=== PATIENT | female | born 1985 | race Caucasian/White ===

== ENCOUNTER 2016-06-19 12:36 | Outpatient (CLI) | payer OTHER ==
[2014-07-29 04:14] VITALS: BP 98/66
[2016-06-23 10:41] LABS: ADENOVIRUS F 40/41 Not Detected (Not Detected); ASTROVIRUS Not Detected (Not Detected); C. DIFFICILE (TOXIN A/B) Not Detected (Not Detected); CRYPTOSPORIDIUM Not Detected (Not Detected); CYCLOSPORA CAYETANENSIS Not Detected (Not Detected); ENTAMOEBA HISTOLYTICA Not Detected (Not Detected); GIARDIA LAMBLIA Not Detected (Not Detected); ROTAVIRUS A Not Detected (Not Detected); SAPOVIRUS Not Detected (Not Detected); VIBRIO CHOLERAE Not Detected (Not Detected)
== END 2016-06-19 12:37 ==
LOC: LAB 12:36
PROVIDERS: ATTEND Physician Assistant
DX: K92.1 Melena (principal); R19.5 Other fecal abnormalities
CPT/HCPCS: 87045; 87046; 87427; 87507

== ENCOUNTER 2016-10-09 14:09 | Emergency (ER) | payer OTHER ==
[2016-10-09 15:34] LABS: APPEARANCE,URINE Clear (CLEAR); BASOPHILS % 0.8 (0.0-1.5); COLOR,URINE Yellow (YELLOW); EOSINOPHILS % 1.6 % (0.0-6.8); MEAN CORPUSCULAR HEMOGLOBIN 30.6 pg (28.0-34.0); MONOCYTES % 3.8 % (0.0-11.0); OCCULT BLOOD,URINE Negative (NEGATIVE); UROBILINOGEN URINE 0.2 Eu (0.2-1.0)
[2016-10-09 15:51] LABS: eGFR (African) > 60; eGFR (Non-African) > 60
[2016-10-09 16:00] LABS: AMPHETAMINE NEGATIVE ng/mL (<1000); BARBITURATES NEGATIVE ng/mL (<300); CANNABINOIDS NEGATIVE ng/mL (<50); COCAINE NEGATIVE ng/mL (<150); METHAMPHETAMINE NEGATIVE ng/mL (<1000); METHYLENEDIOXYMETHAMPHETAMINE NEGATIVE ng/mL (<500)
[2016-10-09 16:22] VITALS: BP 115/72
--- NOTE | 2016-10-10 17:39 | ED Physician Documentation ---
Dizziness - HISTORIAN Historian: patient - HPI Stated Complaint: weak/dizzy Chief Complaint: Dizziness Additional Information: pt. opened a package in the mail, inhaled some sort of chemical smell and became weak, dizzy, bad taste in mouth Timing: sudden onset Duration: persistent (better by time of arrival) Last known Well Date: 10/09/16 Last Known Well Time: 12:00 Last known Well Code/Unknown Code: Unknown Context: opened a plastic bag in the mail Severity: moderate Associated Symptoms: vestibular, light headedness Decreased Ability to Stand/ Walk: weak Usually: walks w/o assistance Worsened By: nothing Further Comments: no - ROS CONST: no problems EYES/ENT: none GI/: none LNMP: denies: MS/SKIN/LYMPH: none NEURO/PSYCH: tingling hands CVS/RESP: shortness of breath - PAST HX Past History: none Cardiac Disease: none Surgeries/Procedures: other (breast augmentation) Immunizations: referred to PCP Allergies/Adverse Reactions: Allergies Allergy/AdvReac Type Severity Reaction Status Date / Time No Known Allergies Allergy Verified 10/09/16 14:35 Home Medications: Ambulatory Orders Medication Instructions Recorded NK [NK] 07/29/14 - SOCIAL HX Smoking History: non-smoker Alcohol Use: none Drug Use: none - FAMILY HX Family History: none - VITAL SIGNS Vital Signs: Vital Signs Temp Pulse Resp BP Pulse Ox 98.7 F 72 16 115/72 99 10/09/16 16:17 10/09/16 16:17 10/09/16 16:17 10/09/16 16:17 10/09/16 16:17 - REVIEWED ASSESSMENTS Nursing Assessment Reviewed: Yes Vitals Reviewed: Yes Progress - Results/Orders Results/Orders: ua, uds, cbc, cmp ordered - Progress Progress: pt. placed on 2 liters O2 in er and completely recovered Critical Care Note - Critical Care Note Total Time (mins): 0 ED Results Lab/Radiology - Lab Results Lab Results: Lab Results 10/09/16 10/09/16 10/09/16 15:25 15:10 15:10 WBC RBC Hgb Hct MCV MCH MCHC RDW Plt Count Neut % (Auto) Lymph % (Auto) [place] % (Auto) Eos % (Auto) Baso % (Auto) Neut # Lymph # [place] # Eos # Baso # Reactive Lymphs % Reactive Lymphs # Sodium 140 mmol/L mmol/L (136-145) Potassium 3.4 mmol/L L mmol/L (3.5-5.0) Chloride 110 mmol/L mmol/L (98-110) Carbon Dioxide 35 mmol/L H mmol/L (20-32) BUN 11 mg/dL mg/dL (10-26) Creatinine 0.7 mg/dL mg/dL (0.4-1.5) Estimated Creat Clear 120 Est GFR ( Amer) > 60 (60 - ) Est GFR (Non-Af Amer) > 60 (60 - ) Glucose 101 mg/dL H mg/dL (70-99) Calcium 9.8 mg/dL mg/dL (8.5-10.5) Total Bilirubin 0.5 mg/dL mg/dL (0.2-1.2) AST 17 U/L U/L (0-41) ALT 10 U/L U/L (0-45) Alkaline Phosphatase 51 U/L U/L (46-116) Total Protein 7.6 g/dL g/dL (6.0-8.5) Albumin 5.0 g/dL g/dL (3.0-5.5) Urine Color Yellow (YELLOW) Urine Appearance Clear (CLEAR) Urine pH 7.0 (5.0 - 8.0) Ur Specific [place] 1.015 (1.010-1.030) Urine Protein Negative mg/dL mg/dL (NEGATIVE) Urine Ketones Negative mg/dL mg/dL (NEGATIVE) Urine Occult Blood Negative (NEGATIVE) Urine Nitrite Negative (NEGATIVE) Urine Bilirubin Negative (NEGATIVE) Urine Urobilinogen 0.2 Eu Eu (0.2-1.0) Ur Leukocyte Esterase Negative (NEGATIVE) Urine Glucose Negative mg/dL mg/dL (NEGATIVE) Opiates Screen Negative (2000 ng/mL) Oxycodone Screen Negative ng/mL ng/mL (<100) Methadone Screen Negative ng/mL ng/mL (<300) POC Urine Barbiturates Negative ng/mL ng/mL (<300) Amphetamines Screen Negative ng/mL ng/mL (<1000) POC Ur Methamphetamine Negative ng/mL ng/mL (<1000) MDMA Negative ng/mL ng/mL (<500) Benzodiazepines Screen Negative ng/mL ng/mL (<300) Cocaine Screen Negative ng/mL ng/mL (<150) Marijuana (THC) Screen Negative ng/mL ng/mL (<50) 10/09/16 15:10 WBC 6.10 K/ul K/ul (4.00-12.00) RBC 4.36 M/ul M/ul (3.90-5.20) Hgb 13.3 g/dL g/dL (12.0-16.0) Hct 38.8 % % (34.5-46.5) MCV 89.0 fl fl (80.0-100.0) MCH 30.6 pg pg (28.0-34.0) MCHC 34.4 g/dL g/dL (30.0-36.0) RDW 12.8 % % (11.3-14.3) Plt Count 171 K/mm3 K/mm3 (130-400) Neut % (Auto) 65.5 % % (39.0-79.0) Lymph % (Auto) 27.2 % % (16.0-50.0) [place] % (Auto) 3.8 % % (0.0-11.0) Eos % (Auto) 1.6 % % (0.0-6.8) Baso % (Auto) 0.8 (0.0-1.5) Neut # 4.0 # k/uL # k/uL (1.4-7.7) Lymph # 1.6 # k/uL # k/uL (0.6-4.0) [place] # 0.2 # k/uL # k/uL (0.0-0.9) Eos # 0.1 # k/uL # k/uL (0.0-0.6) Baso # 0.0 # k/uL # k/uL (0.0-0.5) Reactive Lymphs % 1.1 % % (0.0-5.0) Reactive Lymphs # 0.1 # k/uL # k/uL (0.0-0.8) Sodium Potassium Chloride Carbon Dioxide BUN Creatinine Estimated Creat Clear Est GFR ( Amer) Est GFR (Non-Af Amer) Glucose Calcium Total Bilirubin AST ALT Alkaline Phosphatase Total Protein Albumin Urine Color Urine Appearance Urine pH Ur Specific [place] Urine Protein Urine Ketones Urine Occult Blood Urine Nitrite Urine Bilirubin Urine Urobilinogen Ur Leukocyte Esterase Urine Glucose Opiates Screen Oxycodone Screen Methadone Screen POC Urine Barbiturates Amphetamines Screen POC Ur Methamphetamine MDMA Benzodiazepines Screen Cocaine Screen Marijuana (THC) Screen - Radiology Radiology Impressions: none ordered - Orders Orders: ED Orders Category Date Time Status CBC/PLATELET/DIFF Routine Lab 10/09/16 15:10 Completed CMP Routine Lab 10/09/16 15:10 Completed DRUG SCREEN URINE MEDICAL ONLY Routine Lab 10/09/16 15:25 Completed URINALYSIS Routine Lab 10/09/16 15:10 Completed Oxygen Daily Oxygen 10/09/16 15:15 Ordered Dizziness Physical Exam - Physical Exam General Appearance: mild distress EENT: eye inspection normal, ENT inspection normal, pharynx normal, no signs of dehydration, JESSICA, no nystagmus, TM's nml. No: scleral icterus Neck: normal inspection, thyroid normal, supple Respiratory: no respiratory distress, breath sounds nml, chest non-tender CVS: reg rate & rhythm, heart sounds normal, equal pulses, no murmur, no gallop , PMI nml, no JVD, no friction rub Abdomen: soft, no organomegaly, normal bowel sounds, no abdominal bruit, no distension, non-tender Skin: warm/dry, normal color Neuro: nml orientation, nml speech, nml cognition, depressed affect / mood Extremities: non-tender Cranial: nml as tested, no evidence of acute CVA Cerebellar: nml as tested Sensorimotor: motor nml, sensation nml Discharge Clincal Impression: Inhalation of gaseous substance Qualifiers: Encounter type: initial encounter Injury intent: accidental or unintentional Qualified Code(s): T59.91XA - Toxic effect of unspecified gases, fumes and vapors, accidental (unintentional), initial encounter Referrals: Shawn Thakkar MD [Primary Care Provider] - 2 Days Home Medications: Ambulatory Orders NK [NK] 07/29/14 Comments: discharged in stable and recovered condition Condition: Stable Disposition: 01 HOME, SELF-CARE Decision to Admit: NO Decision Time: 16:15
== END 2016-10-09 16:15 | disposition home or self-care (01) ==
LOC: ED 14:09
DX: T59.91XA Toxic effect of unspecified gases, fumes and vapors, accidental (unintentional), initial encounter (principal); X58.XXXA Exposure to other specified factors, initial encounter; Y93.9 Activity, unspecified; Y99.9 Unspecified external cause status
CPT/HCPCS: 80053; 80377; 81002; 85025; 99283; G0481

== ENCOUNTER 2017-01-09 11:05 | Outpatient (CLI) | payer OTHER ==
[2017-01-09 11:49] LABS: eGFR (African) > 60; eGFR (Non-African) > 60
== END 2017-01-09 11:15 ==
LOC: RT 11:05
PROVIDERS: ATTEND Physician Assistant
DX: R07.9 Chest pain, unspecified (principal)
CPT/HCPCS: 36415; 80053; 84484

== ENCOUNTER 2017-02-10 11:04 | Outpatient (CLI) | payer OTHER | END 2017-02-10 11:05 | LOC: CARD 11:04 | PROVIDERS: ATTEND Internal Medicine Cardiovascular Disease | DX: R07.81 Pleurodynia (principal); I95.1 Orthostatic hypotension; F17.210 Nicotine dependence, cigarettes, uncomplicated | CPT/HCPCS: G0463 ==

== ENCOUNTER 2017-03-24 12:15 | Outpatient (CLI) | payer OTHER | END 2017-03-24 12:20 | LOC: CARD 12:15 | PROVIDERS: ATTEND Internal Medicine Cardiovascular Disease | DX: R07.89 Other chest pain (principal) | CPT/HCPCS: G0463 ==

== ENCOUNTER 2017-05-04 10:01 | Outpatient (CLI) | payer OTHER | END 2017-05-04 10:02 | LOC: LABRHC 10:01 | PROVIDERS: ATTEND Family Medicine | DX: R07.0 Pain in throat (principal); R30.0 Dysuria | CPT/HCPCS: 87070; 87086 ==

== ENCOUNTER 2017-08-23 09:00 | Emergency (ER) | payer OTHER ==
[2017-08-23] MEDS ORDERED: 0.9 % SODIUM CHLORIDE 1,000 ML IV ONE ×2 (09:11→09:12)
[2017-08-23] MEDS ORDERED: ONDANSETRON HCL/PF 4 MG/ 2ML VIAL IVP ONE (09:11)
[2017-08-23] MEDS ORDERED: ONDANSETRON HCL/PF 4 MG/ 2ML VIAL ONE (09:12)
[2017-08-23 09:22] LABS: BASOPHILS % 0.2 (0.0-1.5); EOSINOPHILS % 0.8 % (0.0-6.8); MEAN CORPUSCULAR HEMOGLOBIN 30.4 pg (28.0-34.0); MEAN CORPUSCULAR VOLUME 88.4 fl (80.0-100.0); NEUTROPHILS # 7.2 # k/uL (1.4-7.7)
[2017-08-23 09:32] LABS: eGFR (African) > 60; eGFR (Non-African) > 60
--- NOTE | 2017-08-23 10:12 | ED Physician Documentation ---
Abdominal Pain - HISTORIAN Historian: patient, spouse - HPI Stated Complaint: N/V/D Chief Complaint: Abdominal Pain Onset: other (yesterday) Timing: worse Context: denies: out of country travel, bad food, recent trauma Severity: severe Quality: pain, cramping Associated Symptoms: nausea, vomiting, diarrhea, loss of appetite. denies: fever, chills, coffee ground emesis, bloody emesis, bloody stools, grossly bloody stools, chest pain Exacerbated by: denies: nothing Relieved by: nothing Further Comments: yes (31 year old female patient presents with complaints of nausea, vomiting and diarrhea which started yesterday morning. C/O cramping. Patient denies any fever, chills, or bloody stools.) - ROS CONST: no problems GI/: none CVS/RESP: hurts to breath EYES/ENT: none MS/SKIN/LYMPH: none NEURO/PSYCH: none - SOCIAL HX Smoking History: non-smoker - FAMILY HX Family History: denies: none - PAST HX Past History: other (Raynauds, ) Ischemic Bowel Risk Factors: none Other History: other (cardiac workup - negative; by Dr Connor) Surgeries/Procedures: other (breast augmentation) Home Medications: Ambulatory Orders Medication Instructions Recorded Promethazine HCl [Phenergan] 25 mg PO Q8H PRN #30 tablet 08/23/17 Allergies/Adverse Reactions: Allergies Allergy/AdvReac Type Severity Reaction Status Date / Time No Known Allergies Allergy Verified 10/09/16 14:35 - VITAL SIGNS Vital Signs: Vital Signs Temp Pulse Resp BP Pulse Ox 97.6 F 78 18 105/72 100 08/23/17 09:00 08/23/17 09:00 08/23/17 09:00 08/23/17 09:00 08/23/17 09:00 - REVIEWED ASSESSMENTS Nursing Assessment Reviewed: Yes Vitals Reviewed: Yes Progress - Progress Progress: Patient states she feels "better" after zofran and IV fluids. Continues to c/o cramping - medicated with bentyl po Reviewed discharge instructions with patient and ; questions answered. ED Results Lab/Radiology - Lab Results Lab Results: Lab Results 08/23/17 08/23/17 08/23/17 09:14 09:14 09:14 WBC 8.80 K/ul K/ul (4.00-12.00) RBC 5.08 M/ul M/ul (3.90-5.20) Hgb 15.4 g/dL g/dL (12.0-16.0) Hct 44.9 % % (34.5-46.5) MCV 88.4 fl fl (80.0-100.0) MCH 30.4 pg pg (28.0-34.0) MCHC 34.4 g/dL g/dL (30.0-36.0) RDW 12.7 % % (11.3-14.3) Plt Count 231 K/mm3 K/mm3 (130-400) Neut % (Auto) 82.5 % H % (39.0-79.0) Lymph % (Auto) 11.6 % L % (16.0-50.0) [place] % (Auto) 4.0 % % (0.0-11.0) Eos % (Auto) 0.8 % % (0.0-6.8) Baso % (Auto) 0.2 (0.0-1.5) Neut # (Auto) 7.2 # k/uL # k/uL (1.4-7.7) Lymph # (Auto) 1.0 # k/uL # k/uL (0.6-4.0) [place] # (Auto) 0.4 # k/uL # k/uL (0.0-0.9) Eos # (Auto) 0.1 # k/uL # k/uL (0.0-0.6) Baso # (Auto) 0.0 # k/uL # k/uL (0.0-0.5) Reactive Lymphs % 0.9 % % (0.0-5.0) Reactive Lymphs # 0.1 # k/uL # k/uL (0.0-0.8) Sodium 143 mmol/L mmol/L (136-145) Potassium 4.0 mmol/L mmol/L (3.5-5.1) Chloride 106 mmol/L mmol/L (98-107) Carbon Dioxide 19 mmol/L L mmol/L (22-30) BUN 14 mg/dL mg/dL (7-17) Creatinine 0.80 mg/dL mg/dL (0.52-1.04) Est GFR ( Amer) > 60 (60 - ) Est GFR (Non-Af Amer) > 60 (60 - ) Glucose 93 mg/dL mg/dL (74-106) Calcium 9.9 mg/dL mg/dL (8.4-10.2) Total Bilirubin 1.2 mg/dL mg/dL (0.2-1.3) AST 26 U/L U/L (15-46) ALT 30 U/L U/L (13-69) Alkaline Phosphatase 70 U/L U/L (38-126) Total Protein 8.7 g/dL H g/dL (6.3-8.2) Albumin 5.3 g/dL H g/dL (3.5-5.0) Serum HCG, Qual Negative (NEGATIVE) - Orders Orders: ED Orders Category Date Time Status Place IV Lock 1T Care 08/23/17 09:11 Active CBC/PLATELET/DIFF Routine Lab 08/23/17 09:14 Completed CMP Routine Lab 08/23/17 09:14 Completed SERUM HCG Stat Lab 08/23/17 09:14 Completed URINALYSIS Routine Lab 08/23/17 09:11 Ordered 0.9 % Sodium Chloride [Normal Saline] 1,000 ml Med 08/23/17 09:12 Discontinued IV .STK-MED 0.9 % Sodium Chloride [Normal Saline] 1,000 ml Med 08/23/17 09:11 Discontinued IV Q1H Dicyclomine HCl [Bentyl] Med 08/23/17 10:13 Discontinued 10 mg IM NOW ONE Dicyclomine HCl [Bentyl] Med 08/23/17 10:17 Discontinued 20 mg PO .STK-MED ONE Dicyclomine HCl [Bentyl] Med 08/23/17 10:17 Discontinued 20 mg PO NOW ONE Ondansetron HCl/Pf [Zofran 4 mg/2 ml] Med 08/23/17 09:12 Discontinued 4 mg .ROUTE .STK-MED ONE Ondansetron HCl/Pf [Zofran 4 mg/2 ml] Med 08/23/17 09:11 Discontinued 4 mg IVP NOW ONE Abdominal Pain Physical Exam - Physical Exam General Appearance: mild distress EENT: eye inspection normal, JESSICA RESPIRATORY: no resp distress, chest non-tender, breath sounds normal CVS: reg rate & rhythm, heart sounds normal, equal pulses, no murmur, no gallop , PMI nml, no JVD, no friction rub, 24 ABDOMEN: soft, no organomegaly, no abdominal bruit, no distension, increased BS SKIN: normal color, warm/dry, NR, INT, PAL, DR EXTREMITIES: non-tender, normal range of motion, no evidence of injury, no edema , J, [employer]ARD RUNNER NEURO: oriented X3, CN's nml as tested, motor nml, sensation nml Vital Signs: Vital Signs Temp Pulse Resp BP Pulse Ox 97.6 F 78 18 105/72 100 08/23/17 09:00 08/23/17 09:00 08/23/17 09:00 08/23/17 09:00 08/23/17 09:00 Discharge Clincal Impression: Gastroenteritis Prescriptions: Promethazine HCl [Phenergan] 25 mg PO Q8H PRN #30 tablet PRN Reason: Nausea / Vomiting Referrals: Radha Alva PA [Primary Care Provider] - 2 Days Additional Instructions: Start over the counter immodium per package directions. Diet: Clear liquids Sprite/7-up Juices apple, white grape Gatorade/Powerade Jello Popsicles When tolerating clear liquids, advance to bland/brat diet - such as crackers, rice, Bananas, apples/applesauce or toast Return to the emergency department or call your doctor, if you are having severe abdominal pain, fever >101.0, or if there is blood in the vomit or diarrhea, or you cannot keep down liquids or solid food. Fever: Use Tylenol or Ibuprofen as needed per package directions Tylenol 500mg po q4h prn pain Ibuprofen 800mg po TID prn pain - do not take for more than 4 days. Condition: Stable Disposition: 01 HOME, SELF-CARE Decision to Admit: NO Decision Time: 10:12
[2017-08-23] MEDS ORDERED: DICYCLOMINE HCL 10 MG/ML VIAL IM ONE (10:13)
[2017-08-23] MEDS ORDERED: DICYCLOMINE HCL 20 MG TABLET PO ONE ×2 (10:17)
[2017-08-23 10:33] VITALS: BP 103/70
== END 2017-08-23 10:31 | disposition home or self-care (01) ==
LOC: ED 09:00
DX: K52.9 Noninfective gastroenteritis and colitis, unspecified (principal)
CPT/HCPCS: 80053; 84703; 85025; 96365; 96375; 99283; J2405; J7030; S1016

== ENCOUNTER 2017-09-29 08:33 | Outpatient (CLI) | payer OTHER | END 2017-09-29 08:35 | LOC: OUT 08:33 | PROVIDERS: ATTEND General Practice | DX: N94.10 Unspecified dyspareunia (principal); Z30.9 Encounter for contraceptive management, unspecified | CPT/HCPCS: 99213 ==

== ENCOUNTER 2018-11-25 15:59 | Outpatient (CLI) | payer OTHER | END 2018-11-25 16:03 | LOC: LABRHC 15:59 | PROVIDERS: ATTEND Family Medicine | DX: Z11.2 Encounter for screening for other bacterial diseases (principal) | CPT/HCPCS: 87086 ==